=== PATIENT | female | born 2000 | race Caucasian/White ===

== ENCOUNTER 2024-12-30 05:50 | Day surgery (SDC) | payer OTHER, SELFPAY ==
[2024-12-30] VITALS (14 sets, daily range): BP systolic 90–130; BP diastolic 58–83; BMI 21.6
[2024-12-30 03:08] LABS: % Basophils 0.2 % (0-2); % Eosinophils 0.7 % (0-6); % Immature Granulocytes 0.3 % (0-0.5); % Lymphocytes 9.9 % (20.5-51.1); % Monocytes 5.4 % (1.7-9.3); % Neutrophils 83.5 % (42.2-75.2); Absolute Eosinophils 0.1 10^3/uL (0-0.7); Absolute Lymphocytes 1.4 10^3/uL (1.2-3.4); Absolute Monocytes 0.8 10^3/uL (0.1-0.6); Absolute Neutrophils 11.9 10^3/uL (1.4-6.5); Hematocrit 38.6 % (37.0-47.0); Hemoglobin 13.3 g/dL (12.0-16.0); Mean Corp Hgb Conc. 34.5 g/dL (33.0-37.0); Mean Corpuscular Volume 87.1 fL (81.0-99.0); Mean Platelet Volume 10.2 fL (7.4-10.4); Nucleated Red Blood Cells % 0 %; Platelet Count 193 10^3/uL (130-400); Red Blood Cell Count 4.43 10^6/uL (4.20-5.40); Red Cell Dist. Width 12.3 % (11.5-14.5); White Blood Cell Count 14.2 10^3/uL (4.8-10.8)
[2024-12-30 03:27] LABS: HCG, Serum Qualitative Screen Negative
[2024-12-30 03:42] LABS: ALT (SGPT) 17 U/L (0-35); AST (SGOT) 21 U/L (14-36); Albumin 4.2 g/dl (3.5-5.0); Alkaline Phosphatase 57 U/L (38-126); Blood Urea Nitrogen 12 mg/dl (7-17); Calcium 9.3 mg/dl (8.4-10.2); Carbon Dioxide 25 mmol/L (22-30); Chloride 109 mmol/L (98-107); Glucose 117 mg/dl (70-99); Lipase 130 U/L (23-300); Potassium 3.9 mmol/L (3.5-5.1); Sodium 140 mmol/L (135-145); Total Bilirubin 0.8 mg/dl (0.2-1.3); Total Protein 6.5 g/dl (6.3-8.2); eGFR > 60.00
--- NOTE | 2024-12-30 03:43 | ED.GENMED ---
History of Present Illness
General
Chief Complaint: Abdominal Pain
Source: patient
Exam Limitations: none
Time Seen by Provider: 12/30/24 03:16
Nursing documentation reviewed up to this point in time: agreed with
History of Present Illness
History of Present Illness:
Note:
CHIEF COMPLAINT(S)
Abdominal pain.
HISTORY OF PRESENT ILLNESS
The patient is a 24-year-old female presenting with abdominal pain that began after consuming ice cream. The pain is described as gaseous and persistent, worsening with meals. The abdominal discomfort is diffuse but mainly localized in the right
lower quadrant. She denies diarrhea, dark stools, and vomiting. She reports similar symptoms two years ago, which subsided after two days. No known food allergies. There is a past mention of a colonoscopy performed due to a previous CT scan
indicative of possible ulcerative colitis, although the colonoscopy was normal.
The patient has not experienced respiratory symptoms, diarrhea, or any recent illness contacts. There is no history of peptic ulcer disease, appendectomy, cholecystectomy, or use of nonsteroidal anti-inflammatory drugs such as ibuprofen. She denies
any blood in stool or black stool.
ADDITIONAL HISTORY OBTAINED FROM SOURCES OTHER THAN THE PATIENT
According to the patients report, there is a family history of gastrointestinal issues, specifically Crohns disease in extended family members.
SOCIAL DETERMINANTS AFFECTING HEALTH
The patient takes cranberry supplements to prevent urinary tract infections and probiotics. She perceives them as beneficial for her gastrointestinal health.
REVIEW OF SYSTEMS
see hpi.
PHYSICAL EXAM
General: Patient is well appearing and in no acute distress; non-toxic
Skin: Warm and dry, no rashes or lesions
Head: Normocephalic, atraumatic
Eyes: Sclera non-icteric. EOMs intact.
Cardiac: Regular rate and rhythm, no murmurs
Peripheral Vascular: No lower extremity swelling or edema
Pulm: Normal respiratory effort, no wheezes, rales, or rhonchi
Abdomen: RLQ tenderness to palpation
Neuro: CN II-XII intact, no focal neurologic deficits.
Psychiatric: Appropriate mood and affect.
PLAN
1. Administer IV (ketorolac) for pain management.
2. Obtain abdominal CT scan to rule out appendicitis and evaluate for any gastrointestinal pathology.
3. Conduct a urinalysis to exclude urinary tract infection.
4. Continue observation and provide hydration as necessary.
5. Monitor for any signs of worsening condition.
6. Educate the patient on dietary modifications to avoid triggering foods.
DIFFERENTIAL DIAGNOSIS
The Differential Diagnosis includes, in no particular order and is not limited to:
1. Appendicitis
2. Lactose intolerance
3. Irritable Bowel Syndrome (IBS)
4. Gastroenteritis
5. Ulcerative Colitis
6. Crohns Disease
7. Peptic Ulcer Disease
8. Celiac Disease
9. Diverticulitis
10. Mesenteric Adenitis
MDM
CT shows acute appendicitis. Pt allergic to penicillin will start Flagyl and Rocephin. 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 Patient referred for admission
Past History
Past History
ED Past Medical History: GERD
ED Past Surgical History: Orthopedic
Social History
Tobacco: Non-smoker
Alcohol: Occasional
Drug: None
Personal: Single
Living: with family
Phy Exam
Physical Exam
Physical Exam:
see hpi
Course
Orders/Labs/Results
Orders:
Orders
12/30/24 02:53
Test Result ONCE
12/30/24 02:59
Complete Blood Count/With Diff Urgent
Comprehensive Metabolic Panel Urgent
HCG, Serum Qualitative Screen Urgent
Lipase Urgent
12/30/24 04:06
CT Abd/pelvis W Iv Cont Urgent
Comment:
Reason For Exam: rlq ab pain
Ketorolac [Toradol] 15 mg IV NOW STA
12/30/24 04:37
Urinalysis Reflex To Culture Urgent
Date Specimen was Collected: 12/30/24
Time Specimen was Collected: 04:19
12/30/24 05:22
CefTRIAXone [Rocephin] 1,000 mg IV NOW STA
MetroNIDAZOLE 500 MG/100 ML [Flagyl 500 mg] 100 ml IV NOW
12/30/24 05:33
Admit/Transfer Patient As Directed
Co-Sign Provider:
Level of Care: Observation services
Assign to:: Medical/Surgical
Physician / Group: [facility]/general surgery service
Diagnosis: acute appendicitis
12/30/24 05:34
PRN Pain Medication Management As Directed
May give lesser potent ordered pain med per pt: Yes
preference::
Protocol:: Medication orders for pain may be administered in a
manner that supports deferring to patient preference
when the pt is:
- Requesting an ordered lesser potent pain medication.
Least to most potent pain medications are defined
as: acetaminophen < NSAID < tramadol < opioids
(morphine, oxycodone, hydromorphone).
- Requesting a lesser dose of the same medication IF
ORDERED.
- Requesting a less intrusive route of administration
if both routes are prescribed by the provider (PO <
IV).
12/30/24 05:35
Code Status As Directed
Resuscitation Status: Full Code
12/30/24 Breakfast
NPO
Allow oral meds: No
Allow clear liquids: No
NPO
Allow oral meds: No
Allow clear liquids: No
NPO with Ice Chips: No
12/30/24 06:30
Morphine Sulfate 2 mg IV Q2HPRN PRN
Morphine Sulfate 4 mg IV Q2HPRN PRN
Ondansetron Injectable [Zofran] 4 mg IV Q6HPRN PRN
12/30/24 06:30
Activity As Directed
Activity Level: Out of Bed-Early Mobility
Anti-embolism (APRIL) Hose As Directed
Type: Thigh high
Intake/ Output As Directed
Frequency: Per unit guidelines
Pneumatic Compression Sleeves As Directed
Type: Thigh high
Vital Signs As Directed
Frequency: Per unit guidelines
DX Deep Vein Thrombosis Video Routine
Abnormal Lab Results
12/30/24
02:59
WBC 14.2 H 10^3/uL
(4.8-10.8)
Absolute Neuts (auto) 11.9 H 10^3/uL
(1.4-6.5)
Absolute Monos (auto) 0.8 H 10^3/uL
(0.1-0.6)
Neutrophils % 83.5 H %
(42.2-75.2)
Lymphocytes % 9.9 L %
(20.5-51.1)
Chloride 109 H mmol/L
(98-107)
Glucose 117 H mg/dl
(70-99)
12/30/24 02:59
12/30/24 02:59
Vital Signs
Initial and Last Documented VS:
Initial Vital Signs
Temp Pulse Resp BP Pulse Ox
98.2 F 90 18 130/76 100
12/30/24 02:30 12/30/24 02:30 12/30/24 02:30 12/30/24 02:30 12/30/24 02:30
Last Documented Vital Signs
Temp Pulse Resp BP Pulse Ox
98.4 F 81 19 110/63 100
12/30/24 06:15 12/30/24 06:15 12/30/24 06:15 12/30/24 06:15 12/30/24 08:30
*Pulse Oximetry
SaO2: 100
Oxygen Mode of Delivery: Room air
*Critical Care Note
Total Time (30-74mins, 75-104mins- exclusive of procedures): Not Applicable
ED Attending Note
-
Portions of this chart may have been created with voice recognition software.� Occasional wrong word or��sound alike� substitutions may have occurred due to the inherent limitations of voice recognition software.
Discharge Plan
Departure
Patient Disposition: Admit
Date of Disposition: 12/30/24
Time of Disposition: 05:24
Admit to: Med/Surg
Presentation/result/management discussed w/ accepting MD/DO: Hospitalist
Patient with high blood pressure during this ER visit?: Yes
Condition: Fair
Discharge Problem:
Acute appendicitis
Interventions
Interventions:
*Risk Screen - Suicide Last Done: 12/30/24 02:30
*General Assessment Last Done: 12/30/24 02:50
*Neglect/Abuse Screening Last Done: 12/30/24 02:30
*ED- Fall Risk Assessment Last Done: 12/30/24 02:50
*ED COVID-19 Vaccine History Last Done: 12/30/24 02:50
*Nursing Disposition Last Done: 12/30/24 06:25
KN-Vwlkpr-Derpisfwlk Assessment Last Done: 12/30/24 02:50
Discharge Date and Time
Discharge Date/Time: 12/30/24 06:32
[2024-12-30] MEDS: TORADOL 15 MG IV (04:36)
[2024-12-30 04:56] LABS: Urine Albumin Negative (Neg - Trace); Urine Bilirubin Negative (Negative); Urine Character Clear (Clear); Urine Color Yellow; Urine Glucose Negative (Negative); Urine Ketone Negative (Negative); Urine Leukocyte Negative (Negative); Urine Nitrite Negative (Negative); Urine Occult Blood Negative (Negative); Urine Urobilinogen Negative (Neg - 1+)
[2024-12-30] MEDS: FLAGYL 500 MG 100 IV (05:32)
[2024-12-30] MEDS: ROCEPHIN 1000 MG IV (05:32)
--- NOTE | 2024-12-30 05:58 | W.PN.UPDATE ---
Update Note
Progress Note Update
Admission orders placed for patient with acute appendicitis. She asked about the possibility of an non-surgical intervention. I encouraged her to ask the surgeon and it depends on the severity noted on CT and symptom management.
--- NOTE | 2024-12-30 06:33 | PTCARENOTE ---
Pt transferred to [address] [place] [address] from ED at 0630. AAOx3. VSS. NPO for possible OR later. Admission assessment complete. Pt oriented to room, call shaw within reach, bed in lowest position.
[2024-12-30] MEDS: NSS 250 IV (08:14)
[2024-12-30] MEDS: NSS 1000 IV (08:54)
--- NOTE | 2024-12-30 09:35 | CM ---
Addendum entered by Alexander Núñez 12/30/24 16:12:
Please read: home no needs. (npo needs was a mechanical error)
Addendum entered by Alexander Núñez 12/30/24 14:56:
Pt is upgraded to inpatient level of are.
Discharge order noted. Both pt and her parents are aware, expressed their agreement.
D/C plan: home npo needs. Parents to transport
Original Note:
CM following re: discharge planning.
Reviewed pt's chart, met with pt. pt's parents at bedside.
Pt is a 24 year old female, admitted with OBS status and primary dx of Acute appendicitis. OBS status explained to the pt, pt expressed her understanding with some question regarding coverage, OBS letter signed, placed on chart, pt has a copy.
Pt reports she lives with a boyfriend in a 2SH, 1 step to enter, has no children. 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 Pt is aware she is to OR today.
PCP: Pt stated she has [facility] physician
Pharmacy: [facility]
D/C plan: home with anticipated no needs.
CM will follow with discharge plan updates as hospitalization progresses
--- NOTE | 2024-12-30 10:07 | W.SUR.PREOP ---
Pre-Operative Surgical Note
-
I have examined this patient prior to the performance of the scheduled procedure.
The patient's condition is unchanged from the time of the current History and
Physical and the patient is able to undergo the scheduled procedure.
--- NOTE | 2024-12-30 10:10 | HPS.HSE ---
Family Physician
-
Family Physician: PHYSICIAN PRIVATE
Chief Complaint
-
Abdominal pain
History of Present Illness
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 The patient denies Fever, Chest Pain, Shortness Of
Breath, Nausea, Vomiting, changes in urinary and bowel habits, unintentional weight loss.
Medical History
Past Medical History
Past Medical History: Reports None
Past Surgical History: Reports Other
Additional Past Surgical History:
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
Social History
Tobacco: Non-smoker
Personal: Single
Employment: Employed
Family History
Family History: Not pertinent
Allergies / Home Medications
Allergies reflects when Allergies were last updated in [facility].
Home Medications with original date entered in [facility]
Allergy/Medication List:
None
Review of Systems
-
A 12 point ROS was completed and negative except as noted: Yes
Physical Exam
Vital Signs
Vital Signs
Temp Pulse Resp BP Pulse Ox
98.4 F 81 19 110/63 100
12/30/24 06:15 12/30/24 06:15 12/30/24 06:15 12/30/24 06:15 12/30/24 08:30
Physical Exam
General: Well Developed
HEENT: NormoCephalic
Respiratory: Non Labored Respirations
GI: Soft, Non Distended and Tender
Laboratory Results
-
12/30/24 02:59
12/30/24 02:59
Laboratory Results
Total Bilirubin 0.8 mg/dl (0.2-1.3) 12/30/24 02:59
AST 21 U/L (14-36) 12/30/24 02:59
ALT 17 U/L (0-35) 12/30/24 02:59
Alkaline Phosphatase 57 U/L (38-126) 12/30/24 02:59
Lipase 130 U/L (23-300) 12/30/24 02:59
Data Reviewed
-
CT Scan: Image Personally Visualized and interpreted, Report Reviewed by me and Discussed with Patient
Lab Data: Labs Reviewed by me and Discussed with Patient
Impression/Plan
-
IMPRESSION: This is a 24-year-old female who presents with 2-day history of worsening abdominal pain found to have acute appendicitis on CT imaging.
PLAN:
Will plan for a laparoscopic appendectomy in the OR today.
N.p.o., IV fluids, IV antibiotics.
Will likely DC home today pending intraoperative findings.
Risks/Benefits/Alternatives, expected postoperative course and possible complications (bleeding, infection, injury to surrounding structures, acute/chronic pain) discussed at length. Patient wishes to proceed with surgery. All questions answered.
Consent obtained.
I spent 75 minutes in total for the care of this patient today including direct patient care and counseling, reviewing labs, imaging, coordination of care, as well as documentation.
--- NOTE | 2024-12-30 11:05 | W.IMMPOSTOP ---
Surgical Immed Post Op Note
-
Primary Surgeon: Davey Simpson MD
Assisting Surgeon: None
Pre-op Diagnosis: Acute appendicitis
Post-op Diagnosis: Same
Procedure Performed: Laparoscopic appendectomy
Anesthesia Type: General
Specimen / Cultures: Appendix
Estimated Blood Loss: 1 cc
Complications: None
Operative Findings: 5 mm port appendectomy. x3 Acutely inflamed and thickened appendix. Non-suppurative, nonperforated appendicitis. Some simple fluid in the pelvis was suctioned out. Base of the appendix was taken with a 0 PDS Endoloop x 2.
POST OP PLAN:
Will discharge home later today off antibiotics.
--- NOTE | 2024-12-30 11:09 | OR.RPT ---
Operative Report
Operative Report
Patient Name: Yumi Mcintyre
: 2000
Date of Operation: 12/30/2024
Preoperative Diagnosis: Acute Appendicitis
Postoperative Diagnosis: Same
Procedure(s):
Laparoscopic Appendectomy
Surgeon(s):
Dr. Simpson
Cutlet Maker Pork(s):
None
Anesthesia: General
Estimated Blood Loss: 1 cc
Urine Output: None
Drains/Lines/Implants: None
Specimens:
1. Appendix
HPI/Surgical Indications:
This is a a 24-year-old female who presents with a 2 day history of abdominal pain. Exam, labs and imaging are consistent with acute appendicitis. Risks/Benefits/Alternatives were discussed at length, and the patient agreed to proceed with surgery.
Operative Findings: 5 mm port appendectomy. x3 Acutely inflamed and thickened appendix. Non-suppurative, nonperforated appendicitis. Some simple fluid in the pelvis was suctioned out. Base of the appendix was taken with a 0 PDS Endoloop x 2.
Procedure Description:
The patient was placed in the supine position, with the left arm tucked, and general anesthesia was induced. The abdomen was prepared and draped in a sterile fashion so as to expose the entire abdomen. A surgical time out was taken. Abdominal access
was obtained with a 5 mm infra-umbilical Aura Entry. After confirming no injury on entrance, two additional 5mm ports were placed in the suprapubic area just off midline and in the left lower quadrant. The patient was placed in Trendelenberg with
the right slightly up . The appendix was identified and a window was created in the mesoappendix. The appendix was inflamed, thickened and dilated but not perforated. Using a laparoscopic bipolar energy device, the meso appendix was divided. The
base of the appendix appeared uninvolved and was ligated/divided using two 0-PDS Endoloops and the energy device. The appendix was placed in a specimen retrieval bag. Hemostasis was confirmed and the ports were removed under visualization. The
specimen was passed off the field. The umbilical port was closed with a [id number] 0-PDS and the skin for all three ports was closed with interrupted monocryls and covered with dermabond. The patient was awoken from anesthesia in good condition
and transported to the recovery area.
I was the attending physician and performed the procedure with no assistance. I was present for all portions of the case.
Davey Simpson MD
[2024-12-30] MEDS: DILAUDID 0.25 MG IV (11:37)
--- NOTE | 2024-12-30 16:00 | PTCARENOTE ---
pt returned from PACU @1200. pt alert with family at bedside. post op plan of care discussed. pt tolerated liquids and regular food, denies nausea.
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 assisted to ambulate to bathroom, pt voided large amount of urine. pt verbalized ready for discharge. discharge instructions discussed w/verbalized understanding. INT removed and pt discharged via WC
w/volunteer accompanied by mother.
== END 2024-12-30 16:15 | disposition home or self-care (01) ==
LOC: PACU 05:50
PROVIDERS: Physician Assistant; ATTENDING PHYSICIAN Surgery; EMERGENCY PHYSICIAN Student in an Organized Health Care Education/Training Program
PROC: 0DTJ4ZZ Resection of Appendix, Percutaneous Endoscopic Approach (ICD-10-PCS; 2024-12-30)
DX: K35.80 Unspecified acute appendicitis (principal)
CPT/HCPCS: 44970; 88304; 74177; 80053; 81003; 83690; 84703; 85025; 96365; 96375; 99285; C1776; Q9967